=== PATIENT | male | born 1950 | race Caucasian/White ===

== ENCOUNTER → 2021-10-07 | Outpatient (CLI) | payer MEDICARE | LOC: RAD 08:43 | DX: M41.9 Scoliosis, unspecified (principal); Z95.0 Presence of cardiac pacemaker | CPT/HCPCS: 72072 ==

== ENCOUNTER → 2021-10-25 | Outpatient (CLI) | payer MEDICARE | LOC: US 09:25 | DX: R74.8 Abnormal levels of other serum enzymes (principal); R93.2 Abnormal findings on diagnostic imaging of liver and biliary tract | CPT/HCPCS: 76705 ==